=== PATIENT | female | born 1960 | race Caucasian/White ===

== ENCOUNTER 2017-09-17 07:08 | Day surgery (SDC) | payer BC ==
--- NOTE | 2017-09-17 07:00 | PCM.PREANE ---
Preanesthetic Assessment - Anesthesia/Transfusion/Family Hx Anesthesia History: Prior Anesthesia Without Reaction Family History of Anesthesia Reaction: No Transfusion History: No Prior Transfusion(s) Intubation History: Unknown - Review of Systems General: No Symptoms (Woke up with some chest congestion.) Pulmonary: No Symptoms (History of Heart murmur/History of NITZA with CPAP use/ Quit smoking 2007), Cough Cardiovascular: No Symptoms, Lightheadedness (positional changes) Gastrointestinal: No Symptoms (History of colitis, GERD) Neurological: No Symptoms (2nd toe right foot discomfort rated at 1/10.) Other: Reports: None (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), Thyroid Problems (hypothyroid/graves disease), Anxiety - Physical Assessment NPO Status Date: 09/16/17 NPO Status Time: 18:00 Pulse: 64 O2 Sat by Pulse Oximetry: 95 Respiratory Rate: 16 Blood Pressure: 114/71 Temperature: 37.3 C Height: 1.7 m Weight: 106.594 kg ASA Class: 2 Mental Status: Alert & Oriented x3 Airway Class: Mallampati = 2 Dentition: Reports: Normal Dentition, [place](s), Caries Thyro-Mental Finger Breadths: 3 Mouth Opening Finger Breadths: 3 ROM/Head Extension: Full Lungs: Clear to Auscultation, Normal Respiratory Effort Cardiovascular: Regular Rate, Regular Rhythm, No Murmurs - Lab Values: MRSA screen negative. Labs: BUN: 22 CR: 0.9 All other labs within limits to proceed with scheduled procedure. - Imaging/EKG Impressions: EKG: SR rate= 60 Echocardiogram according to history and physical reports no significant abnormalities. - Allergies Allergies/Adverse Reactions: Allergies Allergy/AdvReac Type Severity Reaction Status Date / Time aspirin Allergy Cannot Verified 09/16/17 14:17 Remember ibuprofen Allergy Cannot Verified 09/16/17 14:17 Remember - Anesthesia Plan Pre-Op Medication Ordered: None - Acknowledgements Anesthesia Type Planned: General Anesthesia, MAC (Ankle Block with MAC) Pt an Appropriate Candidate for the Planned Anesthesia: Yes Alternatives and Risks of Anesthesia Discussed w Pt/Guardian: Yes Pt/Guardian Understands and Agrees with Anesthesia Plan: Yes PreAnesthesia Questionnaire HEENT History: Reports: Impaired Vision, Other (See Below) Other HEENT History: glasses Cardiovascular History: Reports: Heart Murmur, Other (See Below) Other Cardiovascular History: pericardial effusion, spider veins Respiratory History: Reports: Sleep Apnea Gastrointestinal History: Reports: GERD, Other (See Below) Other Gastrointestinal History: splenectomy Genitourinary History: Reports: None BUTTER GRADER History: Reports: None Musculoskeletal History: Reports: Other (See Below) Other Musculoskeletal History: right foot hammer toe, osteopenia Neurological History: Reports: None Psychiatric History: Reports: Depression Endocrine/Metabolic History: Reports: Hypothyroidism, Other (See Below) Other Endocrine/Metabolic History: graves disease Hematologic History: Reports: Other (See Below) Other Hematologic History: Factor V, leukocytosis Immunologic History: Reports: None Oncologic (Cancer) History: Reports: None Dermatologic History: Reports: Other (See Below) Other Dermatologic History: actinic skin damage - Past Surgical History Head Surgeries/Procedures: Reports: None HEENT Surgical History: Reports: Tonsillectomy Cardiovascular Surgical History: Reports: None Respiratory Surgical History: Reports: None GI Surgical History: Reports: Colonoscopy Female Surgical History: Reports: D&C, Tubal Ligation Male Surgical History: Reports: None Endocrine Surgical History: Reports: None Neurological Surgical History: Reports: None Musculoskeletal Surgical History: Reports: Shoulder Surgery Oncologic Surgical History: Reports: None Dermatological Surgical History: Reports: None - SUBSTANCE USE Smoking Status *Q: Former Smoker Recreational Drug Use History: No - HOME MEDS Home Medications: Home Meds Acetaminophen [Tylenol Extra Strength] 1,000 mg PO Q6H PRN 09/16/17 [History] Ascorbic Acid [Vitamin C] 1,000 mg PO DAILY 09/16/17 [History] Ca Carbonate/Vitamin D3/Vit K [Calcium + D Soft Chewable Tab] 1 tab PO DAILY 01/01 [History] Celecoxib [CeleBREX] 100 mg PO DAILY PRN 09/16/17 [History] Cholecalciferol (Vitamin D3) [Vitamin D3] 1,000 unit PO DAILY 09/16/17 [History] Echinacea 400 mg PO DAILY 09/16/17 [History] Gluc/MSM/C/[place]/Manganese/Farzana [Joint Support Complex Softgel] 1 cap PO DAILY [History] Levothyroxine Sodium [Levothyroxine Sodium] 137 mcg PO DAILY 09/16/17 [History] Menthol [Biofreeze] 1 applic TOP ASDIRECTED PRN 09/16/17 [History] Multivitamin [Zoo Chews] 1 tab PO BEDTIME 09/16/17 [History] Omeprazole [Omeprazole] 20 mg PO DAILY 09/16/17 [History] Sertraline HCl [Sertraline HCl] 100 mg PO DAILY 09/16/17 [History] guaiFENesin [Mucinex] 600 mg PO BID PRN 09/16/17 [History] valACYclovir HCl [valACYclovir] 1,000 mg PO BID PRN 09/16/17 [History] - CURRENT (IN HOUSE) MEDS Current Meds: Current Medications Lactated Ringer's (Ringers, Lactated) 1,000 mls @ 125 mls/hr IV ASDIRECTED ISABELLE Stop: 09/17/17 23:00 Lidocaine/Sodium Bicarbonate (Buffered Lidocaine 1% In Ns 8.4%) 0.25 ml .XX ONETIME PRN PRN Reason: Prior to IV Start Stop: 09/17/17 18:00 Sodium Chloride (Saline Flush) 10 ml FLUSH ASDIRECTED PRN PRN Reason: Keep Vein Open Stop: 09/17/17 18:00
[~2017-09-17 07:08] MED LIST: Lactated Ringers 1,000 ML IV SCH; Lidocaine 1%/Sod Bicarbonate in NS 8.4% 1 ML Syringe PRN; Sodium Chloride 0.9% 10 ML Syringe FLUSH PRN
[2017-09-17] MEDS ORDERED: Lidocaine 1% 30 ML SDV ONE (07:11)
[2017-09-17] MEDS ORDERED: Bupivacaine 0.5% 30 ML SDV ONE (07:11)
[2017-09-17] MEDS ORDERED: Lidocaine 1% 50 ML MDV ONE (07:12)
[2017-09-17] MEDS ORDERED: Ondansetron 4 MG/2 ML SDV ONE (07:40)
[2017-09-17] MEDS ORDERED: Lidocaine 1% 8 ML ONE (07:40)
[2017-09-17] MEDS ORDERED: Propofol 200 MG/20 ML SDV ONE ×3 (07:40→08:50)
[2017-09-17] MEDS ORDERED: Lactated Ringers 2,000 ML ONE (07:40)
[2017-09-17] MEDS ORDERED: Midazolam 1 MG/ML 2 ML SDV ONE ×2 (07:40→08:54)
[2017-09-17] MEDS ORDERED: ceFAZolin 1 GM Vial ONE (07:40)
[2017-09-17] MEDS ORDERED: fentaNYL 100 MCG/2 ML SDV ONE (07:41)
[2017-09-17] MEDS ORDERED: Ketamine 500 mg/10 ML MDV ONE (07:41)
[2017-09-17] MEDS ORDERED: Albuterol 0.083% 2.5 MG/3 ML Neb Soln NEB ONE (07:54)
--- NOTE | 2017-09-17 08:24 | PCM.OPNOTE ---
- General Post-Op/Procedure Note Date of Surgery/Procedure: 09/17/17 Operative Procedure(s): 1.) Osteotomy & internal fixation, RIGHT 2nd metatarsal. 2.) Arthroplasty, RIGHT 2nd toe Post-Op Diagnosis: Same Anesthesia Technique: Local, MAC Primary Surgeon: Ruddy Elliott II Anesthesia Provider: Mayuri So Complications: None Condition: Good Free Text/Narrative:: Patient left OR for recovery with vital signs stable & vascular status grossly intact to digits 1-5 Right foot.
[2017-09-17] MEDS ORDERED: HYDROmorphone 0.5 MG/0.5 ML Syringe IVPUSH PRN (08:34)
[2017-09-17] MEDS ORDERED: Albuterol 0.083% 2.5 MG/3 ML Neb Soln NEB PRN (08:34)
[2017-09-17] MEDS ORDERED: Ondansetron 4 MG/2 ML SDV IVPUSH PRN (08:34)
[2017-09-17] MEDS ORDERED: fentaNYL 100 MCG/2 ML SDV IVPUSH PRN (08:34)
[2017-09-17] MEDS ORDERED: Midazolam 1 MG/ML 2 ML SDV IVPUSH PRN (08:34)
[2017-09-17] MEDS ORDERED: HYDROmorphone 1 MG/ML Syringe ONE ×2 (08:44→09:03)
[2017-09-17] MEDS: Bupivacaine 0.5% 30 ML SDV ONE ×2 (08:58→09:24)
--- NOTE | 2017-09-17 09:44 | PCM48HPAN ---
Post Anesthesia Note - EVALUATION WITHIN 48HRS OF ANESTHETIC Vital Signs in Normal Range: Yes Patient Participated in Evaluation: Yes Respiratory Function Stable: Yes Airway Patent: Yes Cardiovascular Function Stable: Yes Hydration Status Stable: Yes Pain Control Satisfactory: Yes Nausea and Vomiting Control Satisfactory: Yes Mental Status Recovered: Yes
--- NOTE | 2017-09-17 11:58 | CR ---
Right toes: Single fluoroscopic spot view was obtained of the right toes utilizing C-arm device. Surgery identified within the second digit. By clinical history this is correcting a hammertoe deformity. Fluoroscopy time given as 1.1 second. Impression: 1. Operative study as noted above. Diagnostic code #2
--- NOTE | 2017-09-17 14:05 | OR ---
DATE OF OPERATION: 09/17/2017 SURGEON: Ruddy Elliott II, DPM LOCATION: [place], [place]. ANESTHESIA: MAC with local block about the right foot provider ANESTHESIA PROVIDER: Mayuri So CRNA. HEMOSTASIS: Right pneumatic ankle tourniquet at 250 mmHg pressure for 42 minutes. PREOPERATIVE DIAGNOSIS: Painful and symptomatic chronic hammertoe deformity right 2nd toe. POSTOPERATIVE DIAGNOSIS: Painful and symptomatic chronic hammertoe deformity right 2nd toe. OPERATION PERFORMED: 1. Osteotomy, right 2nd metatarsal with internal screw fixation. 2. Arthroplasty, right 2nd toe with 10-degree Smart toe implant. DESCRIPTION OF PROCEDURE: Upon arrival and admission to the hospital, the patient was examined and cleared for surgery by the assigned anesthesia provider. IV access was obtained in the preoperative area after which the patient was brought to the OR via gurney, transferred to the operating room table in a supine position. The patient had received 3 g of Ancef IV piggyback in the preoperative area and was assisted with a transfer in the operative room table after she arrived via gurney. The patient was given a combination of sedations and was adequately sedated before receiving 10 mL of a 1:1 mixture of 1% lidocaine plain and 0.5% Marcaine plain for local infiltrative ankle block as well as a block around the 2nd metatarsophalangeal joint. Anesthesia was tested and found to be adequate. The right lower extremity was then prepped and draped in usual aseptic manner after a cotton Webril padding had been applied above the ankle joint in preparation for nonsterile pneumatic ankle tourniquet. The right lower extremity would later be elevated and exsanguinated with the use of an Esmarch bandage before inflating the pneumatic ankle tourniquet to 250 mmHg pressure. The Esmarch bandage was removed and right lower extremity was placed back to the level of the operating room table. Attention was then directed to the dorsal aspect of the right 2nd metatarsophalangeal joint and proximal interphalangeal joint where an incision was created 2 cm proximal to the 2nd MTPJ and was carried distally in a serpentine fashion to come to finish just 1 cm distal to the proximal interphalangeal joint of the right 2nd toe. This was controlled to have skin incision and taken down to the level of subcutaneous structures with care taken to retract the vital neurovascular structures within the area as well as cauterize and ligate all superficial bleeders as deemed necessary. Continuous soft tissue dissection was then taken down to the level of the subcutaneous structures. A transverse tenotomy and capsulotomy was performed at the proximal interphalangeal joint, and this brought into exposures of the hypertrophic head of the right 2nd proximal phalanx, which was resected with a power sagittal saw from dorsal to plantar. Likewise, the base of the intermediate phalanx of the right 2nd toe was also resected of its articular cartilage via a power sagittal saw. Attention was then directed to the right 2nd metatarsophalangeal joint where the wing and sling overlying the extensor apparatus was released and a McGlamry scoop elevator was utilized to free up all soft tissue adhesions to the right 2nd metatarsal. After this was undertaken, the extensor longus tendon was lengthened in a Z-plasty formation and a power sagittal saw was utilized to create a Jarred osteotomy from the distal articular surface of the 2nd metatarsal head to plantar proximal portion of the met head and allowed for it to be translocated proximally under the 2nd metatarsal shaft by approximately 3-4 mm. It was then secured and reduced with the use of two 0.035 K-wires that would be utilized for the 2.0 cannulated screw system. Two screws, 1 measuring 13 and the other 14 mm were utilized to bring about rigid internal fixation compression across the right 2nd metatarsal osteotomy. After this was undertaken, the wound was then copiously lavaged with sterile saline solution and a 19 mm 10-degree Smart toe implant was selected after the appropriate termite treater helper holes and broaches had been placed in the base of the intermediate phalanx as well as the resected head of the proximal phalanx. The wound was then copiously lavaged with sterile saline solution once again, and the extensor tendon was then prepared and reapproximated with use of 3-0 Vicryl. The subcuticular level was also reapproximated utilizing 4-0 Vicryl and the skin was then reapproximated utilizing 4-0 nylon. Postoperative anesthesia consistent with an additional 20 mL of 0.5% Marcaine plain. Dressings were then consisted of Betadine soaked Adaptic gauze, 4 x 4 gauze, Shiela, and an Leander bandage. Upon completion of the surgery, the pneumatic ankle tourniquet was deflated and was noted digits 1 through 5 of the right lower extremity became pink indicating normal vascular perfusion returned. The patient appeared to tolerate the procedure and anesthesia well and left the OR for recovery with the vital signs being stable and vascular status intact digits 1 through 5 of the right foot with no complications. In recovery, the patient received written and oral postop instructions as well as postoperative pain medication. The patient will ambulate partial weightbearing with an immobilization boot fitted and dispensed in the postoperative anesthesia care unit about her right foot and ankle. Estimated blood loss through this procedure was approximately 10 mL and considered negligible. There were no apparent or obvious complications. ESTIMATED BLOOD LOSS: MMODAL /[id number]
== END 2017-09-17 10:55 | disposition home or self-care (01) ==
LOC: JD.SDS 07:08 → MERGE 08:00 → JD.SDS 10:55
PROVIDERS: ATTEND Podiatrist Foot & Ankle Surgery
DX: M20.41 Other hammer toe(s) (acquired), right foot (principal); G47.30 Sleep apnea, unspecified; K21.9 Gastro-esophageal reflux disease without esophagitis; F32.9 Major depressive disorder, single episode, unspecified; E03.9 Hypothyroidism, unspecified; D68.51 Activated protein C resistance; Z87.891 Personal history of nicotine dependence; Z88.6 Allergy status to analgesic agent; Z98.51 Tubal ligation status; Z90.81 Acquired absence of spleen; Z90.89 Acquired absence of other organs; Z98.890 Other specified postprocedural states; Z79.899 Other long term (current) drug therapy
CPT/HCPCS: 28285; 76000; 94640; J0690; J1170; J2250; J2405; J3010; J7120; 01480; C1713; J2704; L8641

== ENCOUNTER 2021-10-20 08:52 | Day surgery (SDC) | payer BC ==
--- NOTE | 2021-10-17 14:47 | PCM.SN.2 ---
- Free Text/Narrative Note: Left selective femoral nerve block at the adductor canal for post-procedure pain control under US guidance requested by Dr. Mejia. Time Out: 1404 Start: 140 End: 1420 Chart reviewed. Consent signed. Questions answered. Appropriate monitors applied. Time out performed. Left mid-shaft femur identified with ultrasound, scanning medially of femur, the femoral artery in the adductor canal visualized, and the femoral nerve located laterally to the artery. The skin was prepped lateral to the ultrasound probe with chlorahexadine times two. The 21ga 4 insulated block needle was inserted under direct ultrasound guidance into the adductor canal. 20mL of 0.5% ropivacaine with 1:200,000 epinephrine was injected circumferentially around the nerve with intermittent negative aspiration noted. Patient tolerated the procedure well. Sterile technique noted along with sterile gloves, mask, and sterile probe cover. See picture on progress note and vital signs on nurses notes. Block completed in PACU. Mayuri So CRNA
--- NOTE | 2021-10-17 15:04 | PCM.PREANE ---
Preanesthetic Assessment - Procedure Proposed Procedure: Left Total Knee Arthroplasty and Right Hand Third Metacarpophalangeal Joint Steroid Injection - Anesthesia/Transfusion/Family Hx Anesthesia History: Prior Anesthesia Without Reaction Family History of Anesthesia Reaction: No Transfusion History: Prior Transfusion Without Reaction Intubation History: Unknown - Review of Systems General: No Symptoms Pulmonary: No Symptoms (NITZA: CPAP, Former Smoker: 1/2 ppd times 20 years quit: 2007 ETOH: weekly: 2-3 drinks per week (vodka/wine)) Cardiovascular: No Symptoms Gastrointestinal: No Symptoms (GERD-denies any this am.) Neurological: No Symptoms (Lower back pain: 2-3/10) Other: Reports: None (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)), Diabetes (borderline), Thyroid Problems (Hypothyroid/History of Graves disease:), Depression, Anxiety - Physical Assessment NPO Status Date: 10/19/21 NPO Status Time: 21:00 Vital Signs: HR: 66 Sat: 98% Temp: 99 B/P: 116/75 Resp: 16 Height: 1.73 m Weight: 102 kg ASA Class: 3 Mental Status: Alert & Oriented x3 Airway Class: Mallampati = 2 Dentition: Reports: Normal Dentition, [place](s), Caries Thyro-Mental Finger Breadths: 3 Mouth Opening Finger Breadths: 3 ROM/Head Extension: Full Lungs: Clear to Auscultation, Normal Respiratory Effort Cardiovascular: Regular Rate, Regular Rhythm, No Murmurs - Lab Values: All labs reviewed and noted and within acceptable ranges to proceed with schedul ed procedure. - Imaging/EKG Impressions: EKG: SR rate=69 CXR: negative - Allergies Allergies/Adverse Reactions: Allergies Allergy/AdvReac Type Severity Reaction Status Date / Time aspirin Allergy Cannot Verified 10/20/21 09:35 Remember ibuprofen Allergy Cannot Verified 10/20/21 09:35 Remember - Anesthesia Plan Pre-Op Medication Ordered: Other (Preoperative Medications: (lyrica, tylenol, oxycontin: All P.O.@ 0940)) - Acknowledgements Anesthesia Type Planned: Spinal (Left Adductor Canal Block under US guidance for post operative pain control requested by Dr. Mejia.) Pt an Appropriate Candidate for the Planned Anesthesia: Yes Alternatives and Risks of Anesthesia Discussed w Pt/Guardian: Yes Pt/Guardian Understands and Agrees with Anesthesia Plan: Yes PreAnesthesia Questionnaire HEENT History: Reports: Impaired Vision, Other (See Below) Other HEENT History: glasses Cardiovascular History: Reports: Heart Murmur, Other (See Below) Other Cardiovascular History: pericardial effusion, spider veins Respiratory History: Reports: Sleep Apnea Gastrointestinal History: Reports: GERD, Other (See Below) Other Gastrointestinal History: splenectomy Genitourinary History: Reports: None PHARMACY SERVICES REPRESENTATIVE History: Reports: None Musculoskeletal History: Reports: Other (See Below) Other Musculoskeletal History: right foot hammer toe, osteopenia Neurological History: Reports: None Psychiatric History: Reports: Depression Endocrine/Metabolic History: Reports: Hypothyroidism, Other (See Below) Other Endocrine/Metabolic History: graves disease Hematologic History: Reports: Other (See Below) Other Hematologic History: Factor V, leukocytosis Immunologic History: Reports: None Oncologic (Cancer) History: Reports: None Dermatologic History: Reports: Other (See Below) Other Dermatologic History: actinic skin damage - Past Surgical History Head Surgeries/Procedures: Reports: None HEENT Surgical History: Reports: Tonsillectomy Cardiovascular Surgical History: Reports: None Respiratory Surgical History: Reports: None GI Surgical History: Reports: Colonoscopy Female Surgical History: Reports: D&C, Tubal Ligation Male Surgical History: Reports: None Endocrine Surgical History: Reports: None Neurological Surgical History: Reports: None Musculoskeletal Surgical History: Reports: Shoulder Surgery Oncologic Surgical History: Reports: None Dermatological Surgical History: Reports: None - HOME MEDS Home Medications: Home Meds Acetaminophen [Tylenol Extra Strength] 1,000 mg PO Q6H PRN 09/16/17 [History] Ascorbic Acid [Vitamin C] 1,000 mg PO DAILY 09/16/17 [History] Calcium Carb/Vitamin D3/Vit K1 [Calcium + D Soft Chewable Tab] 1 tab PO DAILY 09/16/17 [History] Cholecalciferol (Vitamin D3) [Vitamin D3] 1,000 unit PO DAILY 09/16/17 [History] Echinacea 400 mg PO DAILY 09/16/17 [History] Gluc/MSM/C/[place]/Manganes/Prim [Joint Support Complex Softgel] 1 cap PO DAILY 09/16/17 [History] Levothyroxine Sodium 137 mcg PO DAILY 09/16/17 [History] Menthol [Biofreeze] 1 applic TOP ASDIRECTED PRN 09/16/17 [History] Multivitamin [Zoo Chews] 1 tab PO BEDTIME 09/16/17 [History] Omeprazole 20 mg PO DAILY 09/16/17 [History] Sertraline HCl 100 mg PO DAILY 09/16/17 [History] guaiFENesin [Mucinex] 600 mg PO BID PRN 09/16/17 [History] valACYclovir HCl [valACYclovir] 1,000 mg PO BID PRN 09/16/17 [History] Cyclobenzaprine [Flexeril] 10 mg PO BID PRN #20 tab 10/17/21 [Rx] Rivaroxaban [Xarelto] 10 mg PO DAILY #42 tab 10/17/21 [Rx] oxyCODONE 5 - 10 mg PO Q4H PRN #40 tab 10/17/21 [Rx] - CURRENT (IN HOUSE) MEDS Current Meds: Current Medications Acetaminophen (Acetaminophen 325 Mg Tab) 975 mg PO ONETIME ISABELLE Stop: 10/20/21 23:00 Morphine Sulfate 8 mg/Epinephrine HCl 0.3 mg/Cefuroxime Sodium 750 mg/Sodium Chloride 7.9 ml 0 mg .XX ASDIRECTED PRN PRN Reason: Pain Stop: 10/20/21 23:00 Lactated Ringer's (Ringers, Lactated) 1,000 mls @ 125 mls/hr IV ASDIRECTED ISABELLE Stop: 10/20/21 23:00 Lidocaine/Sodium Bicarbonate (Lidocaine 1%/Sod Bicarbonate In Ns 8.4% 1 Ml Syringe) 0.25 ml IDERM ONETIME PRN PRN Reason: Prior to IV Start Stop: 10/20/21 18:00 Oxycodone HCl (Oxycodone Er 10 Mg Tab.Er) 10 mg PO ONETIME ISABELLE Stop: 10/20/21 23:00 Pregabalin (Pregabalin 25 Mg Cap) 50 mg PO ONETIME ISABELLE Stop: 10/20/21 23:00 Sodium Chloride (Sodium Chloride 0.9% 10 Ml Syringe) 10 ml FLUSH ASDIRECTED PRN PRN Reason: Keep Vein Open Stop: 10/20/21 18:00
[~2021-10-20 08:52] MED LIST changes: +Lidocaine 1%/Sod Bicarbonate in NS 8.4% 1 ML Syringe IDERM PRN; -Lidocaine 1%/Sod Bicarbonate in NS 8.4% 1 ML Syringe PRN; +Morphine 8 MG, EPINEPHrine 0.3 MG, Cefuroxime 750 MG, Sodium Chloride 0.9% 7.9 ML PRN
[2021-10-20] MEDS ORDERED: Ropivacaine 0.5% 5 MG/ML 30 ML SDV ONE (08:53)
[2021-10-20] MEDS ORDERED: EPINEPHrine 1 MG/ML SDV ONE (08:53)
[2021-10-20] MEDS ORDERED: Pregabalin 25 MG Cap PO SCH (09:00)
[2021-10-20] MEDS ORDERED: oxyCODONE ER 10 MG TAB.ER PO SCH (09:00)
[2021-10-20] MEDS ORDERED: Acetaminophen 325 MG Tab PO SCH (09:00)
[2021-10-20] MEDS ORDERED: Vancomycin 1 GM SDV ONE (09:37)
[2021-10-20] MEDS ORDERED: Bupivacaine 0.5% 10 ML SDV ONE (09:41)
[2021-10-20] MEDS ORDERED: Ondansetron 4 MG/2 ML SDV ONE (10:08)
[2021-10-20] MEDS ORDERED: ceFAZolin 1 GM Vial ONE (10:08)
[2021-10-20] MEDS ORDERED: Lactated Ringers 2,000 ML ONE (10:08)
[2021-10-20] MEDS ORDERED: Propofol 200 MG/20 ML SDV ONE ×2 (10:08→13:00)
[2021-10-20] MEDS ORDERED: Midazolam 1 MG/ML 2 ML SDV ONE ×3 (10:08→13:40)
[2021-10-20] MEDS ORDERED: fentaNYL 100 MCG/2 ML SDV ONE (10:08)
[2021-10-20] MEDS ORDERED: Ketamine 500 mg/10 ML MDV ONE (10:09)
[2021-10-20] MEDS ORDERED: Midazolam 1 MG/ML 2 ML SDV IVPUSH PRN (12:56)
[2021-10-20] MEDS ORDERED: fentaNYL 100 MCG/2 ML SDV IVPUSH PRN (12:56)
[2021-10-20] MEDS ORDERED: diphenhydrAMINE 50 MG/ML SDV IVPUSH PRN (12:56)
[2021-10-20] MEDS ORDERED: ePHEDrine 50 MG/ML SDV IVPUSH PRN (12:56)
[2021-10-20] MEDS ORDERED: Ondansetron 4 MG/2 ML SDV IVPUSH PRN (12:56)
[2021-10-20] MEDS ORDERED: HYDROmorphone 0.5 MG/0.5 ML Syringe IVPUSH PRN (12:56)
[2021-10-20] MEDS: Triamcinolone Acetonide 40 MG/ML 1 ML SDV ONE ×2 (13:05→13:45)
[2021-10-20] MEDS: Bupivacaine 0.25% 10 ML SDV ONE ×2 (13:06→13:45)
[2021-10-20] MEDS ORDERED: HYDROmorphone 0.5 MG/0.5 ML Syringe ONE ×2 (13:12→13:34)
--- NOTE | 2021-10-20 14:02 | PCM.POSTAN ---
POST ANESTHESIA ASSESSMENT - MENTAL STATUS Mental Status: Alert - VITAL SIGNS Vital Signs: Last Vital Signs Temp 98.3 10/20/21 1354 Pulse 75 10/20/21 1354 Resp 19 10/20/21 1354 BP 112/56 10/20/21 1354 Pulse Ox 94% 10/20/21 1354 - RESPIRATORY Respiratory Status: Respiratory Rate WNL, Airway Patent, O2 Saturation Stable - CARDIOVASCULAR CV Status: Pulse Rate WNL, Blood Pressure Stable - GASTROINTESTINAL GI Status: No Symptoms - POST OP HYDRATION Hydration Status: Adequate & Stable
--- NOTE | 2021-10-20 14:45 | CR ---
Left knee: AP and crosstable lateral views of the left knee were obtained. Comparison: Prior left knee CT study of 10/01/21. Knee prosthesis is seen within the tibia and distal femur. Additional patellar prosthesis is seen. Soft tissue air is noted. Underlying bony structures are intact. Impression: 1. Satisfactory postoperative radiographic appearance of recently placed left knee prostheses. Diagnostic code #2
--- NOTE | 2021-10-20 14:57 | PCM48HPAN ---
Post Anesthesia Note - EVALUATION WITHIN 48HRS OF ANESTHETIC Vital Signs in Normal Range: Yes Patient Participated in Evaluation: Yes Respiratory Function Stable: Yes Airway Patent: Yes Cardiovascular Function Stable: Yes Hydration Status Stable: Yes Pain Control Satisfactory: Yes Nausea and Vomiting Control Satisfactory: Yes Mental Status Recovered: Yes Vital Signs: Last Vital Signs Temp 36.9 C 10/20/21 14:15 Pulse 63 10/20/21 14:30 Resp 17 10/20/21 14:40 BP 110/75 10/20/21 14:40 Pulse Ox 96 10/20/21 14:40
[2021-10-20] MEDS ORDERED: oxyCODONE 5 MG Tab PO ONE (16:30)
--- NOTE | 2021-10-29 15:52 | PCM.OPNOTE ---
- General Post-Op/Procedure Note Date of Surgery/Procedure: 10/20/21 Operative Procedure(s): left total knee arthroplasty with areli [employer] and right third metacarpalpahlangeal joint injection Pre Op Diagnosis: left knee osteoarthrosis. right third MCP joint arthritis Post-Op Diagnosis: Same Anesthesia Technique: Local, MAC, Spinal Primary Surgeon: Efrain Mejia Anesthesia Provider: Mayuri So Fleet Manager: Shirley Brito Fleet Manager: Christiane Vides EBL in mLs: 100 Complications: None Condition: Good Free Text/Narrative:: 01/15 9mm 32x10
--- NOTE | 2021-10-29 17:26 | OR ---
DATE OF OPERATION: 10/20/2021 SURGEON: Efrain Mejia MD OPERATION PERFORMED: 1. Left total knee arthroplasty with [employer] robot[employer]. 2. Right third metacarpophalangeal joint injection. PREOPERATIVE DIAGNOSIS: 1. Left knee osteoarthrosis. 2. Right third metacarpophalangeal joint arthritis. POSTOPERATIVE DIAGNOSIS: 1. Left knee osteoarthrosis. 2. Right third metacarpophalangeal joint arthritis. ANESTHESIA: Local MAC with spinal. ANESTHESIA PROVIDER: Mayuri So CRNA ASSISTANTS: Shirley Brito PA-C, and Christiane Vides LPN. ESTIMATED BLOOD LOSS: 100 mL. COMPLICATIONS: None. CONDITION: Stable. IMPLANTS: 1. [employer] size 3 press-fit CR femur. 2. [place] size 3 press-fit tibial baseplate. 3. [employer] size 3, 9 mm CS polyethylene insert. 4. [employer] size 32 x 10 mm press-fit asymmetric patella. DESCRIPTION OF PROCEDURE: The patient was identified in the preop holding area. Proper site was marked and identified by the surgeon. The patient was taken back to the operating theater, where after adequate anesthesia, the patient's left lower extremity had a nonsterile tourniquet applied and then it was sterilely prepped and draped in the usual sterile fashion. OR time-out was performed. The patient received 2 g IV Ancef. Leg berman was then applied to the left lower extremity. At this time, the left lower extremity was exsanguinated. Tourniquet was insufflated to 250 mmHg. Standard anterior incision was made. Medial parapatellar arthrotomy was created. Deep fibers of the MCL were raised and anterior fat pad was resected. Attention was turned to the patella. Patella measured to 24, it was resected to a 14 for a 32 x 10 mm. Drill holes were then drilled. Attention was then turned to the femur. Two 4.0 Schanz pins were placed intra- incisionally on the femur for the [employer] robotic array and then 2 more were placed on the tibia 3 fingerbreadths below the tibial tubercle. The [employer] robotic arrays were placed on both the femur and the tibia at this time as well as checkpoints on the femur and tibia. Hip center rotation was then obtained. The medial and lateral malleoli were marked as well as the checkpoints were marked for the [employer] robotic plan. The patient's knee was brought to full extension, varus and valgus stresses were applied, and then into 90 degrees of flexion. [employer] robotic plan for this patient was then undertaken to match the flexion and extension gaps. A straight saw blade was then brought in. Tibial cut was completed as well as an anterior femoral cut, anterior chamfer cut, and posterior femoral cut. Saw blade was then switched out and the distal femoral cut as well as the posterior chamfer cut was completed. All bony fragments were removed. At this time, medial and lateral menisci were resected as well as any posterior osteophytes. Attention was turned to the tibia. The [employer] size 3 press-fit tibial trial baseplate was placed on the tibia and a size [employer] size 3 press-fit CR trial femur was placed on the femur. A [place] size 3, 9 mm CS trial poly was placed. The patient's knee was brought to full extension and flexion. Varus and valgus stresses were applied, was found to be stable with no instability. No signs of liftoff or loosening on the tibial baseplate. At this time, femoral drill holes were drilled, and the tibia was stamped and drilled in proper rotation. All trial implants were then removed. The size [employer] size 3 press-fit tibial baseplate was impacted into place, size [employer] size 3 press-fit CR femoral component was impacted into place, and then a [place] size 3, 9 mm CS polyethylene insert was impacted into place. A [employer] size 32 x 10 mm press- fit asymmetric patella was then press-fit into place. The tourniquet was deflated. Bleeders were cauterized. 1 L pulse lavage irrigation with Ancef was irrigated through the knee along with 400 mL IrriSept irrigation. Periarticular injection was completed. Topical tranexamic acid and vancomycin powder were applied. All checkpoints and pins were removed. At this point, a #2 barbed suture was used for closure of the medial parapatellar arthrotomy in flexion. 2- 0 Vicryl and Stratafix were used for subcutaneous closure. Prineo was used for cutaneous closure. 3-0 nylons were used for closure of the pin holes on the tibia. The patient had a sterile soft dressing applied. The patient had an DAHLIA wrap applied and was sent to PACU in stable condition. The patient tolerated the procedure well. After these were completed under sterile technique, 1 mL of 40 mg of Kenalog and 1 mL of 0.25% Marcaine were injected into the right third MCP joint under sterile technique. The patient tolerated all procedures well. MMODAL /[id number]
== END 2021-10-20 16:30 | disposition home or self-care (01) ==
LOC: JD.SDS 08:52
PROVIDERS: ATTEND Orthopaedic Surgery
DX: M17.12 Unilateral primary osteoarthritis, left knee (principal); M19.041 Primary osteoarthritis, right hand; E03.2 Hypothyroidism due to medicaments and other exogenous substances; G47.33 Obstructive sleep apnea (adult) (pediatric); K21.9 Gastro-esophageal reflux disease without esophagitis; F32.A Depression, unspecified; G89.18 Other acute postprocedural pain; Z87.891 Personal history of nicotine dependence; Z90.81 Acquired absence of spleen; Z79.899 Other long term (current) drug therapy; Z98.890 Other specified postprocedural states; Z88.8 Allergy status to other drugs, medicaments and biological substances
CPT/HCPCS: 20605; 27447; 73560; 97110; 97116; 97161; A9270; C1713; C1776; J0171; J0690; J0697; J1170; J2250; J2270; J2405; J2704; J2795; J3010; J3301; J3370; J3490; J7120; 01402; 64450; 76942